=== PATIENT | male | born 1965 | race Caucasian/White ===

== ENCOUNTER 2022-01-07 07:36 | Outpatient (CLI) | payer OTHER, SELFPAY ==
[2022-01-07 10:20] LABS: Albumin* 4.7 g/dL (3.3-5.0); Chloride* 103 mmol/L (96-114); Sodium* 140 mmol/L (135-149)
[2022-01-07 10:22] LABS: Bilirubin Total* 0.8 mg/dL (0.1-1.5); Carbon Dioxide* 28 mmol/L (20-32); Cholesterol* 110 mg/dL (90-199); Creatinine* 1.2 mg/dL (0.5-1.5); Estimated Glomerular Filt Rate 71 ml/min
[2022-01-07 10:23] LABS: Alanine Aminotransferase* 29 U/L (4-50); Alkaline Phosphatase* 90 U/L (40-150); Aspartate Amino Transferase* 25 U/L (12-35); Blood Urea Nitrogen* 28 mg/dL (7-30); Glucose* 120 mg/dL (60-115); Total Protein* 6.7 g/dL (6.0-8.3); Triglycerides* 103 mg/dL (40-149)
[2022-01-07 10:24] LABS: Calcium* 9.3 mg/dL (8.4-10.6); HDL Cholesterol* 35 mg/dL (>=40); LDL Cholesterol Calculated 54 mg/dL (<100)
== END 2022-01-07 07:37 | disposition home or self-care (01) ==
PROVIDERS: PCP Family Medicine; Visit Provider Family Medicine
DX: E11.9 Type 2 diabetes mellitus without complications (principal); I10 Essential (primary) hypertension
CPT/HCPCS: 80053; 80061

== ENCOUNTER 2022-07-04 07:45 | Outpatient (CLI) | payer OTHER, SELFPAY | END 2022-07-04 07:46 | disposition home or self-care (01) | LOC: NFLDREF 07-11 09:27 | PROVIDERS: PCP Family Medicine; Referring Provider Family Medicine; Visit Provider Family Medicine | DX: E78.5 Hyperlipidemia, unspecified (principal); E11.9 Type 2 diabetes mellitus without complications; I10 Essential (primary) hypertension | CPT/HCPCS: 80048; 80061 ==

== ENCOUNTER 2023-04-29 07:33 | Outpatient (CLI) | payer OTHER, SELFPAY | END 2023-04-29 07:34 | disposition home or self-care (01) | LOC: NFLDREF 04-30 11:37 | PROVIDERS: PCP Family Medicine; Referring Provider Family Medicine; Visit Provider Family Medicine | DX: E11.9 Type 2 diabetes mellitus without complications (principal); E78.5 Hyperlipidemia, unspecified; I10 Essential (primary) hypertension; N18.31 Chronic kidney disease, stage 3a | CPT/HCPCS: 80053; 80061 ==

== ENCOUNTER 2023-10-30 07:30 | Outpatient (CLI) | payer OTHER, SELFPAY ==
--- OUTSIDE RECORDS SUMMARY | 2023-11-01 02:48 | XMS_ITS | Clinical Summary ---
Author Organization [place] Address [address] [place] [address] Care Team Providers Care Escalator Service Mechanic Name Role Phone Lizzie Abdi Ra, APRN, CNP Primary Care Provid er Michaela Alexis PA-C Unavailable [phone] Allergies Active Allergy Reactions Criticality Noted Date Comments Lisinopril Cough 07/20/2020 Medications Medication Sig Dispensed Refills Start Date End Date Status amLODIPine (NORVASC) 5 MG tabletIndications:Esse ntial hypertension Take 1 tablet (5 mg) by mouth daily 90 tablet 1 02/14/2021 Active allopurinol (ZYLOPRIM) 300 MG tabletIndications:Ui Designer mar gout involving toe of left foot without tophus, unspecified cause Take 1 tablet (300 mg) by mouth daily 90 tablet 1 05/17/2021 Active amLODIPine (NORVASC) 10 MG tabletIndications:Esse ntial hypertension Take 1 tablet (10 mg) by mouth daily 90 tablet 1 05/17/2021 Active hydrochlorothiazide (HYDRODIURIL) 25 MG tabletIndications:Esse ntial hypertension Take 1 tablet (25 mg) by mouth daily 90 tablet 1 05/17/2021 Active valsartan (DIOVAN) 320 MG tabletIndications:Esse ntial hypertension Take 1 tablet (320 mg) by mouth daily 90 tablet 1 05/17/2021 Active Active Problems Patient Care Coordination No te Formatting of this note migh t be different from the original. [email or web address] Problem Noted Date Diagnosed Date Chronic kidney disease, stage 3 07/20/2020 Diabetes mellitus, type 2 07/20/2020 HTN (hypertension) 02/15/2018 Pain in joint of right shoulder 11/24/2014 Overview: Diagnosis updated by automated process. Provider to review and confirm. Gout 10/21/2013 Overview: Problem list name updated by automated process. Provider to review Hyperlipidemia LDL goal <160 10/10/2013 Immunizations Name Administration Dates Next Due COVID-19 Vaccine (Yeyo) 09/21/2020 TDAP Vaccine (Boostrix) 04/23/2018 Family History Medical History Relation Comments Diabetes Brother Cerebrovascular Disease Father Cerebrovascular Disease Mother TIA's Diabetes Mother Relation Status Comments Brother Alive Father (Age 79) Mother Alive Social History Tobacco Use Types Packs/Day Years Used Date Smoking Tobacco: Never Smokeless Tobacco: Never Tobacco Cessation:Counseling Given: No Alcohol Use Standard Drinks/Week Comments Yes 0 (1 standard drink = 0.6 oz pur e alcohol) 2-3 drinks per week. PHQ-2 Answer Date Recorded PHQ-2 Score 0 05/17/2021 Adolescent Education Answer Date Record ed Getting School Help Needed Not on file 02/17 Sex and Gender Information Value Date Recorded Sex Assigned at Male 09/19/2020 4:35 PM CDT Gender Identity Male 09/19/2020 4:35 PM CDT Sexual Orientation Straight 09/19/2020 4: 35 PM CDT Last Filed Vital Signs Vital Sign Reading Time Taken Comments Blood Pressure 138/90 05/17/2021 9:02 AM DENTAL PATIENT COORDINATOR Pulse 94 05/17/2021 8:53 AM DENTAL PATIENT COORDINATOR Temperature 36.9 ??C (98.4 ??F) 05/17/2021 8:53 AM CS T Respiratory Rate 16 05/17/2021 8:53 AM DENTAL PATIENT COORDINATOR Oxygen Saturation 97% 05/17/2021 8:53 AM DENTAL PATIENT COORDINATOR Inhaled Oxygen Concentration - - Weight 95.6 kg (210 lb 11.2 oz) 05/17/2021 8:53 AM DENTAL PATIENT COORDINATOR Height 174 cm (5' 8.5) 05/17/2021 8:53 AM DENTAL PATIENT COORDINATOR Body Mass Index 31.57 05/17/2021 8:53 AM DENTAL PATIENT COORDINATOR Plan of Treatment Health Maintenance Due Date Last Done Comments ADVANCE CARE PLANNING 1965 ANNUAL REVIEW OF HM ORDERS 1966 CT COLONOGRAPHY 1966 DIABETIC FOOT EXAM 1966 EYE EXAM 1965 FIT 1965 FLEX SIG 1966 sDNA (Cologuard) 1966 HIV SCREENING 1981 HEPATITIS C SCREENING 1984 HEPATITIS B IMMUNIZATION (1 of 3 - 19+ 3-dose series) 1985 HEMOGLOBIN 10/10/2014 10/10/2013, 03/04, 03/17/2010, Additional history exists ZOSTER IMMUNIZATION (1 of 2) 2016 YEARLY PREVENTIVE VISIT 04/25/2021 04/25/2020, 02/03 A1C 08/15/2021 05/17/2021, 08/02, 07/20/2020, Additional history exists LIPID 08/17/2021 08/17/2020, 07/02, 02/03/2019, Additional history exists BMP 05/17/2022 05/17/2021, 08/02, 07/16/2020, Additional history exists MICROALBUMIN 05/17/2022 05/17/2021, 02/09/2018 Pneumococcal Vaccine: Pediatrics (0 to 5 Years) and At-Risk Patients (6 to 64 Years) (2 of 2 - PCV) 10/11/2022 10/11/2021 COVID-19 Vaccine (3 - season) 2023 04/03/2021, 09/21/2020 PHQ-2 (once per calendar year) 2023 05/17/2021, 07/20/2020, 04/25/2020, Additional history exists INFLUENZA VACCINE (Season Ended) 2024 05/17/2021 (Declined) DTAP/TDAP/TD IMMUNIZATION (2 - Td or Tdap) 04/23/2028 04/23/2018 COLONOSCOPY 03/01/2029 03/01/2019, 03/01/2019 COLORECTAL CANCER SCREENING 03/01/2029 URINALYSIS Completed 04/04/2019, 06/0 01/2014, 02/08/2010, Additional history exists HPV IMMUNIZATION Aged Out No longer e ligible based on patient's age to complete this topic IPV IMMUNIZATION Aged Out No longer e ligible based on patient's age to complete this topic MENINGITIS IMMUNIZATION Aged Out No l onger eligible based on patient's age to complete this topic RSV MONOCLONAL ANTIBODY Aged Out No l onger eligible based on patient's age to complete this topic Procedures Procedure Name Priority Date/Time Associated Diagnosis Comments ALBUMIN RANDOM URINE QUANTITATIVE Routine 05/17/2021 9:29 AM DENTAL PATIENT COORDINATOR Essential hypertension BASIC METABOLIC PANEL Routine 05/17/2021 9:26 AM DENTAL PATIENT COORDINATOR Essential hypertension Type 2 diabetes mellitus without complication, without long-term current use of insulin (H) Stage 3a chronic kidney disease (H) HEMOGLOBIN A1C Routine 05/17/2021 9:26 AM DENTAL PATIENT COORDINATOR Type 2 diabetes mellitus without complication, without long-term current use of insulin (H) LIPID REFLEX TO DIRECT LDL PANEL Routine 08/17/2020 7:46 AM CDT Hyperlipidemia LDL goal <160 URINE MACROSCOPIC ONLY Routine 04/04/2019 1:17 PM DENTAL PATIENT COORDINATOR Elevated prostate specific antigen (PSA) COLONOSCOPY Routine 03/01/2019 11:56 AM CDT CBC WITH PLATELETS & DIFFERENTIAL Routine 10/10/2013 8:57 AM CDT Other follow-up examination from Last 3 Months or Most Recently Relevant to Health Maintenance Results * Albumin Random Urine Quantitative with Creat Ratio (05/17/2021 9:29 AM DENTAL PATIENT COORDINATOR) Creatinine Urine mg/dL 72 mg/dL 05/18/2021 10:26 AM DENTAL PATIENT COORDINATOR [facility] Albumin Urine mg/L <5 mg/L 05/18/2021 10:26 AM DENTAL PATIENT COORDINATOR [facility] Albumin Urine mg/g Cr 05/18/2021 10:26 AM DENTAL PATIENT COORDINATOR [facility] Comment:Unable to calculate: ??Urine creatinine or albumin value below detectable level Urine URINE SPECIMEN / Unknown Non-blood Collection / Unknown 05/17/2021 9:29 AM DENTAL PATIENT COORDINATOR 05/17/2021 9:29 AM DENTAL PATIENT COORDINATOR Michaela Alexis PA-C LAB - URINE ORDERAB LES [facility]X LABORATORY [facility] Lab [address] Lab (no room number, 1st floor of clinic) [place] [address], [facility] [phone] * (ABNORMAL) Hemoglobin A1c (05/17/2021 9:26 AM DENTAL PATIENT COORDINATOR) Hemoglobin A1C 8.2(H) 0.0 - 5.6 % 05/17/2021 9:35 AM DENTAL PATIENT COORDINATOR RM [facility] Comment: Normal <5.7% Prediabetes 5.7-6.4% ?? Diabetes 6.5% or higher Note: Adopted from ADA consensus guidelines. Blood STRUCTURE OF RIGHT UPPER LIMB / Unknown Venipuncture / Unknown 05/17/2021 9:26 AM DENTAL PATIENT COORDINATOR 05/17/2021 9:26 AM DENTAL PATIENT COORDINATOR Narrative LABORATORY - 05/17/2021 9:35 AM DENTAL PATIENT COORDINATOR Result verified by repeat analysis Michaela Alexis PA-C LAB - BLOOD ORDERAB LES RM LABORATORY [facility] [id number] [place] [address] Lab (no room number, 1st floor of clinic) [place] [address], [facility] [phone] * (ABNORMAL) Basic metabolic panel (Ca, Cl, CO2, Creat, Gluc, K, Na, BUN) (05/17/2021 9:26 AM DENTAL PATIENT COORDINATOR) Sodium 139 133 - 144 mmol/L 05/18/2021 4:38 PM DENTAL PATIENT COORDINATOR [facility] Potassium 3.7 3.4 - 5.3 mmol/L 05/18/2021 4:38 PM DENTAL PATIENT COORDINATOR [facility] Chloride 103 94 - 109 mmol/L 05/18/2021 4:38 PM DENTAL PATIENT COORDINATOR [facility] Carbon Dioxide (CO2) 28 20 - 32 mmol/L 05/18/2021 4:38 PM DENTAL PATIENT COORDINATOR [facility] Anion Gap 8 3 - 14 mmol/L 05/18/2021 4:38 PM DENTAL PATIENT COORDINATOR [facility] Urea Nitrogen 21 7 - 30 mg/dL 05/18/2021 4:38 PM DENTAL PATIENT COORDINATOR [facility] Creatinine 1.22 0.66 - 1.25 mg/dL 05/18/2021 4:38 PM DENTAL PATIENT COORDINATOR [facility] Calcium 9.5 8.5 - 10.1 mg/dL 05/18/2021 4:38 PM DENTAL PATIENT COORDINATOR [facility] Glucose 268(H) 70 - 99 mg/dL 05/18/2021 4:38 PM DENTAL PATIENT COORDINATOR [facility] GFR Estimate 70 >60 mL/min/1.7 3m2 05/18/2021 4:38 PM DENTAL PATIENT COORDINATOR [facility] Comment:Effective April 042020 eGFRcr in adults is calculated using the 2020 CKD-EPI creatinine equation which includes age and gender (Екатерина et al., NEJM, DOI: 10.1056/TQBVvk6807771) Blood STRUCTURE OF RIGHT UPPER LIMB / Unknown Venipuncture / Unknown 05/17/2021 9:26 AM DENTAL PATIENT COORDINATOR 05/17/2021 9:26 AM DENTAL PATIENT COORDINATOR Michaela Alexis PA-C LAB - BLOOD ORDERAB LES OX LABORATORY [facility] [address] Lab (no room number, 1st floor of clinic) [place] [address], [facility] [phone] * (ABNORMAL) Lipid panel reflex to direct LDL Fasting (08/17/2020 7:46 AM CDT) Cholesterol 186 <200 mg/dL 08/17/2020 2:53 PM T [facility] Triglycerides 201(H) <150 mg/dL 08/17/2020 2:53 PM T [facility] Comment: Borderline high: ??150-199 mg/dl High: ? 200-499 mg/dl Very high: ? >499 mg/dl Fasting specimen HDL Cholesterol 31(L) >39 mg/dL 2:53 PM [facility] LDL Cholesterol Calculated 115(H) <100 mg/dL 08/17/2020 2:53 PM [facility] Comment: Above desirable: ??100-129 mg/dl Borderline High: ??130-159 mg/dL High: ? 160-189 mg/dL Very high: ? >189 mg/dl Non HDL Cholesterol 155(H) <130 mg/dL 08/17/2020 2:53 PM CDT [facility] Comment: Above Desirable: ??130-159 mg/dl Borderline high: ??160-189 mg/dl High: ? 190-219 mg/dl Very high: ? >219 mg/dl Blood specimen (specimen) 08/17/2020 7:46 AM CDT 08/17/2020 7:47 AM CDT Lizzie Abdi APRN ENTRY LEVEL MANAGEMENT LAB - BLOOD ORDERABLES Performing Organization Address City/State/[facility] Co de Phone Number [facility] [address] [place] [id number] [phone] * UA without Microscopic [[id number]] (04/04/2019 1:17 PM DENTAL PATIENT COORDINATOR) Color Urine Yellow 04/04/2019 1:22 PM [facility] Appearance Urine Clear 04/04/20 19 1:22 PM [facility] Glucose Urine Negative NEG^Negat jj mg/dL 04/04/2019 1:22 PM [facility] Bilirubin Urine Negative NEG^Negat jj 04/04/2019 1:22 PM [facility] Ketones Urine Negative NEG^Negat jj mg/dL 04/04/2019 1:22 PM [facility] Specific [place] Urine 1.010 1.003 - 1.035 04/04/2019 1:22 PM [facility] Blood Urine Negative NEG^Negat jj 04/04/2019 1:22 PM [facility] pH Urine 7.0 5.0 - 7.0 pH 04/04/2019 1:22 PM [facility] Protein Albumin Urine Negative NEG^Negat jj mg/dL 04/04/2019 1:22 PM [facility] Urobilinogen Urine 0.2 0.2 - 1.0 EU/dL 04/04/2019 1:22 PM [facility] Nitrite Urine Negative NEG^Negat jj 04/04/2019 1:22 PM [facility] Leukocyte Esterase Urine Negative NEG^Negat jj 04/04/2019 1:22 PM [facility] Source Midstream Urine 04/04/2019 1:18 PM [facility] Examination of midstream urine specimen (procedure) 04/04/2019 1:17 PM DENTAL PATIENT COORDINATOR 04/04/2019 1:18 PM [facility] Yazan Sharif MD LAB - URINE ORD ERABLES [facility] [address] [facility] [address] [place] [address], [facility] [phone] * COLONOSCOPY (03/01/2019 11:56 AM CDT) COLONOSCOPY [facility] Patient Name: De Gan ? Procedure Date: 03/01/2019 11:56 AM ? Date of : 1965 ?Admit Type: Outpatient Age: 53 ? Gender: Male Attending MD: Arnulfo Arias MD ?? Total Sedation Time: Instrument Name: 219 - Pediatric Colonoscope Procedure: ?Colonoscopy Indications: ?Screening for colorectal malignant neoplasm Providers: ?Arnulfo Arias MD (Doctor) Referring MD: ? Lizzie Abdi NP (Referring MD) Medicines: ?Midazolam 2 mg IV, Fentanyl 100 micrograms IV Complications: ?No immediate complications. Procedure: ?Pre-Anesthesia Assessment: ?- Prior to the procedure, a History and Physical ?was performed, and patient medications and ?allergies were reviewed. The patient is competent. ?The risks and benefits of the procedure and the ?sedation options and risks were discussed with the ?patient. All questions were answered and informed ?consent was obtained. Patient identification and ?proposed procedure were verified by the physician ?in the procedure room. Mental Status Examination: ?alert and oriented. Airway Examination: normal ?oropharyngeal airway and neck mobility. Respiratory ?Examination: clear to auscultation. CV Examination: ?normal. Prophylactic Antibiotics: The patient does ?not require prophylactic antibiotics. Prior ?Anticoagulants: The patient has taken no previous ?anticoagulant or antiplatelet agents. ASA Grade ?Assessment: I - A normal, healthy patient. After ?reviewing the risks and benefits, the patient was ?deemed in satisfactory condition to undergo the ?procedure. The anesthesia plan was to use moderate ?sedation / analgesia (conscious sedation). ?Immediately prior to administration of medications, ?the patient was re-assessed for adequacy to receive ?sedatives. The heart rate, respiratory rate, oxygen ?saturations, blood pressure, adequacy of pulmonary ?ventilation, and response to care were monitored ?throughout the procedure. The physical status of ?the patient was re-assessed after the procedure. ?After obtaining informed consent, the colonoscope ?was passed under direct vision. Throughout the ?procedure, the patient's blood pressure, pulse, and ?oxygen saturations were monitored continuously. The ?Olympus, Pediatric Colonoscope, Model # [id number]-H190DL, ?[place] # 219, SN # [id number] was introduced through ?the anus and advanced to the cecum, identified by ?appendiceal orifice and ileocecal valve. The ?colonoscopy was performed without difficulty. The ?patient tolerated the procedure well. The quality ?of the bowel preparation was good. ? Findings: ? The perianal and digital rectal examinations were normal. ? A few medium-mouthed diverticula were found in the ascending colon. ? The exam was otherwise without abnormality on direct and retroflexion ? views. ? Impression: ? - Diverticulosis in the ascending colon. ?- The examination was otherwise normal on direct ?and retroflexion views. ?- No specimens collected. Recommendation: ? - Repeat colonoscopy in 10 years for screening ?purposes. ? Procedure Code(s): ? --- Professional --- ? G0121, Colorectal cancer screening; colonoscopy on individual not ? meeting criteria for high risk Diagnosis Code(s): ? --- Professional --- ? Z12.11, Encounter for screening for malignant neoplasm of colon CPT copyright 2018 [employer]. All rights reserved. The codes documented in this report are preliminary and upon fruit shipper review may be revised to meet current compliance requirements. Electronically signed by Arnulfo Arias MD __ Arnulfo Arias MD 03/01/2019 12:46:23 PM I was physically present for the entire viewing portion of the exam. Arnulfo Arias MD Number of Addenda: 0 Note Initiated On: 03/01/2019 11:56 AM MRN: ?[id number] Procedure Date: ? 03/01/2019 11:56:21 AM Scope Withdrawal Time: 0 hours 6 minutes 2 seconds Total Procedure Duration: 0 hours 13 minutes 48 seconds Estimated Blood Loss: ? Scope In: 12:27:17 PM Scope Out: 12:41:05 PM RADIOLOGY RESULTS 03/01/2019 11:5 6 AM CDT Lizzie Abdi ADVANCED ANALYTICS ASSOCIATE ENTRY LEVEL MANAGEMENT PROCEDURES RADIOLOGY RESULTS * CBC with platelets and differential (10/10/2013 8:57 AM CDT) WBC 5.1 4.0 - 11.0 10e9/L [facility] RBC Count 5.20 4.4 - 5.9 10e12/L [facility] Hemoglobin 15.7 13.3 - 17.7 g/dL [facility] Hematocrit 44.7 40.0 - 53.0 % [facility] MCV 86 78 - 100 fl [facility] MCH 30.2 26.5 - 33.0 pg [facility] MCHC 35.1 31.5 - 36.5 g/dL [facility] RDW 12.3 10.0 - 15.0 % [facility] Platelet Count 163 150 - 450 10e9/L [facility] Diff Method Automated Method [facility] % Neutrophils 58.4 % [facility] % Lymphocytes 32.4 % [facility] % Monocytes 5.7 % [facility] % Eosinophils 3.3 % [facility] % Basophils 0.2 % [facility] Absolute Neutrophil 3.0 1.6 - 8.3 10e9/L [facility] Absolute Lymphocytes 1.7 0.8 - 5.3 10e9/L [facility] Absolute Monocytes 0.3 0.0 - 1.3 10e9/L [facility] Absolute Eosinophils 0.2 0.0 - 0.7 10e9/L [facility] Absolute Basophils 0.0 0.0 - 0.2 10e9/L [facility] Blood specimen (specimen) 10/10/2013 8:57 AM CDT 10/10/2013 8:58 AM CDT Lizzie Abdi APRN ENTRY LEVEL MANAGEMENT LAB - BLOOD [facility]ABLES [facility] [address] [place] [address] from Last 3 Months or Most Recently Relevant to Health Maintenance Care Teams Escalator Service Mechanic Relationship Specialty Start Date End Date Lizzie Abdi Ra, ADVANCED ANALYTICS ASSOCIATE ENTRY LEVEL MANAGEMENT [address] [place] [id number] PCP - General Family Practice 10/04/13 Michaela Alexis, PASonalC [address] [place], [place] [id number] Assigned PCP 08/25/23
--- OUTSIDE RECORDS SUMMARY | 2023-11-01 02:49 | XMS_ITS | Encounter Summary ---
Author Organization [place] Address [address] [place] [address]. [place] [address] Care Team Providers Care Extrusion Machine Operator Name Role Phone Lizzie Abdi Ra, APRN RESEARCH CHEMICAL ENGINEER Primary Care Provid er Lizzie Abdi Ra, APRN RESEARCH CHEMICAL ENGINEER Unavailable + [phone] Michaela Alexis PA-C Unavailable [phone] Yazan Sharif MD Unavailable [phone] Lizzie Abdi Ra, APRN RESEARCH CHEMICAL ENGINEER Unavailable + [phone] Michaela Alexis PA-C Unavailable [phone] Lizzie Abdi Ra, APRN RESEARCH CHEMICAL ENGINEER Unavailable + [phone] Michaela Alexis E PA-C Unavailable [phone] Reason for Visit * Reason Onset Date Comments Refill Request 08/09/2019 Encounter Details Date Type Department Care Team (Late st Contact Info) Description 08/09/2019 MyC Refill [facility] [address] [place] [address] Lizzie Abdi Ra, APRN RESEARCH CHEMICAL ENGINEER [address] [place] [address] Refill Request Social History Tobacco Use Types Packs/Day Years Used Date Smoking Tobacco: Never Smokeless Tobacco: Never Alcohol Use Standard Drinks/Week Comments Yes 0 (1 standard drink = 0.6 oz pur e alcohol) 2-3 drinks per week. 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, unspecified cause documented in this encounter Care Teams Extrusion Machine Operator Relationship Specialty Start Date End Date Lizzie Abdi Ra, PIA RESEARCH CHEMICAL ENGINEER [address] [place] [address] PCP - General Family Practice 10/04/13 Lizzie Abdi Ra, APRN RESEARCH CHEMICAL ENGINEER [address] [place] [address] Assigned PCP 02/28/18 02/25/20 Michaela Alexis PA-C [address] [place] [address] Assigned PCP 02/26/20 05/05/20 Yazan Sharif MD [address] [address] Assigned Surgical Provider 02/24/2010/06/20 Lizzie Abdi Ra ANIMAL CARE TECHNICIAN RESEARCH CHEMICAL ENGINEER [address] [address] Assigned PCP 05/06/20 01/24/22 Michaela Alexis PA-C [address] [place] [address] Assigned PCP 01/25/22 11/14/22 Lizzie Abdi Ra, APRN RESEARCH CHEMICAL ENGINEER [address] [place] [address] Assigned PCP 11/15/22 08/24/23 Michaela Alexis PA-C [address] [place] [address] Assigned PCP 08/25/23 documented as of this encounter
--- OUTSIDE RECORDS SUMMARY | 2023-11-01 02:49 | XMS_ITS | Referral Summary ---
Author Organization [facility] Address [address] [place] [address] Care Team Providers Care Graphic Specialist Name Role Phone Lizzie Abdi Ra, APRN, CNP Primary Care Provid er Michaela Alexis PA-C Unavailable [phone] Allergies Active Allergy Reactions Criticality Noted Date Comments Lisinopril Cough 07/20/2020 Medications Medication Sig Dispensed Refills Start Date End Date Status amLODIPine (NORVASC) 5 MG tabletIndications:Esse ntial hypertension Take 1 tablet (5 mg) by mouth daily 90 tablet 1 02/14/2021 Active allopurinol (ZYLOPRIM) 300 MG tabletIndications:Telephone Sterilizer mar gout involving toe of left foot [...] migh t be different from the original. [email or web address] Problem Noted Date Diagnosed Date Chronic kidney [...] Vaccine (Yeyo) 09/21/2020 TDAP Vaccine (Boostrix) 04/23/2018 Social History Tobacco Use Types Packs/Day Years [...] Comments Blood Pressure 138/90 05/17/2021 9:02 AM CAN CR[facility]PER Pulse 94 05/17/2021 8:53 AM CAN CRIMPER Temperature 36.9 ??C (98.4 ??F) 05/17/2021 8:53 AM CS T Respiratory Rate 16 05/17/2021 8:53 AM [facility] CR[facility]PER Oxygen Saturation 97% 05/17/2021 8:53 AM [facility] CR[facility] Inhaled Oxygen Concentration - - Weight 95.6 kg (210 lb 11.2 oz) 05/17/2021 8:53 AM [facility] CR[facility]PER Height 174 cm (5' 8.5) 05/17/2021 8:53 AM [facility] CR[facility] Body Mass Index 31.57 05/17/2021 8:53 AM [facility] CR[facility]PER Plan of Treatment Not on file Procedures Procedure Name Priority Date/Time Associated Diagnosis Comments ALBUMIN RANDOM URINE QUANTITATIVE Routine 05/17/2021 9:29 AM [facility] CR[facility]PER Essential hypertension BASIC METABOLIC PANEL Routine 05/17/2021 9:26 AM [facility] CR[facility]PER Essential hypertension Type 2 diabetes mellitus without complication, without long-term current use of insulin (H) Stage 3a chronic kidney disease (H) HEMOGLOBIN A1C Routine 05/17/2021 9:26 AM [facility] CR[facility]PER Type 2 diabetes mellitus without complication, without long-term current use of insulin (H) LIPID REFLEX TO DIRECT LDL PANEL Routine 08/17/2020 7:46 AM CDT Hyperlipidemia LDL goal <160 URINE MACROSCOPIC ONLY Routine 04/04/2019 1:17 PM [facility] Elevated prostate specific antigen (PSA) COLONOSCOPY Routine 03/01/2019 11:56 AM CDT CBC WITH PLATELETS & DIFFERENTIAL Routine 10/10/2013 8:57 AM CDT Other follow-up examination from Last 3 Months or Most Recently Relevant to Health Maintenance Results * Albumin Random Urine Quantitative with Creat Ratio (05/17/2021 9:29 AM [facility] CR[facility]) Creatinine Urine mg/dL 72 mg/dL 05/18/2021 10:26 AM [facility] Albumin Urine mg/L <5 mg/L 05/18/2021 10:26 AM [facility] Albumin Urine mg/g Cr 05/18/2021 10:26 AM [facility] Comment:Unable to calculate: ??Urine creatinine or albumin value below detectable level Urine URINE SPECIMEN / Unknown Non-blood Collection / Unknown 05/17/2021 9:29 AM [facility] CR[facility] 05/17/2021 9:29 AM [facility] CR[facility] Michaela Alexis PA-C LAB - URINE ORDERAB LES [facility] LAB[facility]AT[facility] [address] Lab (no room number, 1st floor of clinic) [place] [address], [facility] [phone] * (ABNORMAL) Hemoglobin A1c (05/17/2021 9:26 AM CAN CR[facility]PER) Hemoglobin A1C 8.2(H) 0.0 - 5.6 % 05/17/2021 9:35 AM [facility] CR[facility] Comment: Normal <5.7% Prediabetes 5.7-6.4% ?? Diabetes 6.5% or higher Note: Adopted from ADA consensus guidelines. Blood STRUCTURE OF RIGHT UPPER LIMB / Unknown Venipuncture / Unknown 05/17/2021 9:26 AM [facility] CR[facility]PER 05/17/2021 9:26 AM [facility] Narrative LABORATORY - 05/17/2021 9:35 AM [facility] CR[facility] Result verified by repeat analysis Michaela Alexis PA-C LAB - BLOOD ORDERAB LES LABORATORY [facility] [address] [facility] Lab (no room number, 1st floor of clinic) [place] [address], [facility] [phone] * (ABNORMAL) Basic metabolic panel (Ca, Cl, CO2, Creat, Gluc, K, Na, BUN) (05/17/2021 9:26 AM CAN CRIMPER) Sodium 139 133 - 144 mmol/L 05/18/2021 4:38 PM [facility] Potassium 3.7 3.4 - 5.3 mmol/L 05/18/2021 4:38 PM [facility] Chloride 103 94 - 109 mmol/L 05/18/2021 4:38 PM [facility] Carbon Dioxide (CO2) 28 20 - 32 mmol/L 05/18/2021 4:38 PM [facility] Anion Gap 8 3 - 14 mmol/L 05/18/2021 4:38 PM [facility] Urea Nitrogen 21 7 - 30 mg/dL 05/18/2021 4:38 PM [facility] Creatinine 1.22 0.66 - 1.25 mg/dL 05/18/2021 4:38 PM [facility] Calcium 9.5 8.5 - 10.1 mg/dL 05/18/2021 4:38 PM [facility] Glucose 268(H) 70 - 99 mg/dL 05/18/2021 4:38 PM [facility] GFR Estimate 70 >60 mL/min/1.7 3m2 05/18/2021 4:38 PM [facility] Comment:Effective April 042020 eGFRcr in adults is calculated using the 2020 CKD-EPI creatinine equation which includes age and gender (Екатерина et al., NEJM, DOI: 10.1056/ROIYxr0770290) Blood STRUCTURE OF RIGHT UPPER LIMB / Unknown Venipuncture / Unknown 05/17/2021 9:26 AM CAN CRIMPER 05/17/2021 9:26 AM [facility] CR[facility]PER Michaela Alexis PA-C LAB - BLOOD ORDERAB LES [facility]X LABORATORY [facility] [address] Lab (no room number, 1st floor of clinic) [place] [address], [facility] [phone] * (ABNORMAL) Lipid panel reflex to direct LDL Fasting (08/17/2020 7:46 AM CDT) Cholesterol 186 <200 mg/dL 08/17/2020 2:53 PM [facility] Triglycerides 201(H) <150 mg/dL 08/17/2020 2:53 PM [facility] Comment: Borderline high: ??150-199 mg/dl High: ? 200-499 mg/dl Very high: ? >499 mg/dl Fasting specimen HDL Cholesterol 31(L) >39 mg/dL 2:53 PM T [facility] LDL Cholesterol Calculated 115(H) <100 mg/dL 08/17/2020 2:53 PM [facility] Comment: Above desirable: ??100-129 mg/dl Borderline High: ??130-159 mg/dL High: ? 160-189 mg/dL Very high: ? >189 mg/dl Non HDL Cholesterol 155(H) <130 mg/dL 08/17/2020 2:53 PM T [facility] Comment: Above Desirable: ??130-159 mg/dl Borderline high: ??160-189 mg/dl High: ? 190-219 mg/dl Very high: ? >219 mg/dl Blood specimen (specimen) 08/17/2020 7:46 AM CDT 08/17/2020 7:47 AM CDT Lizzie Abdi APRN BUSINESS SYSTEMS CONSULTANT LAB - BLOOD ORDERABLES Performing Organization Address City/State/[facility] Co de Phone Number [facility] [address] [place] [address], [facility] [phone] * UA without Microscopic [[id number]] (04/04/2019 1:17 PM [facility]) Color Urine Yellow 04/04/2019 1:22 PM [facility] Appearance Urine Clear 04/04/20 1:22 PM [facility] Glucose Urine Negative NEG^Negat jj mg/dL 04/04/2019 1:22 PM [facility] Bilirubin Urine Negative NEG^Negat jj 04/04/2019 1:22 PM [facility] Ketones Urine Negative NEG^Negat jj mg/dL 04/04/2019 1:22 PM [facility] Specific Warren Urine 1.010 1.003 - 1.035 04/04/2019 1:22 PM [facility] Blood Urine Negative NEG^Negat jj 04/04/2019 1:22 PM [facility] pH Urine 7.0 5.0 - 7.0 pH 04/04/2019 1:22 PM [facility] Protein Albumin Urine Negative NEG^Negat jj mg/dL 04/04/2019 1:22 PM [facility] Urobilinogen Urine 0.2 0.2 - 1.0 EU/dL 04/04/2019 1:22 PM [facility] Nitrite Urine Negative NEG^Negat jj 04/04/2019 1:22 PM [facility] Leukocyte Esterase Urine Negative NEG^Negat jj 04/04/2019 1:22 PM [facility] Source Midstream Urine 04/04/2019 1:18 PM [facility] Examination of midstream urine specimen (procedure) 04/04/2019 1:17 PM [facility] 04/04/2019 1:18 PM [facility] Yazan Sharif MD LAB - URINE ORD ERABLES [facility] [address] [facility] [address] [place] [address], [facility] [phone] * COLONOSCOPY (03/01/2019 11:56 AM CDT) COLONOSCOPY [facility] Patient Name: Ed KarlosBlossom Gan ? Procedure Date: 03/01/2019 11:56 AM [...] # [id number], ?[place] # 219, SN # [id number] was introduced through ?the anus and advanced [...] malignant neoplasm of colon CPT copyright 2018 [employer]. All rights reserved. The codes documented in this report are preliminary and upon yarn spooler review may be revised to meet current compliance requirements. Electronically signed by Arnulfo Arias MD __ Arnulfo Arias MD 03/01/2019 12:46:23 PM I was physically present for the entire viewing portion of the exam. Arnulfo Arias MD Number of Addenda: 0 Note Initiated On: 03/01/2019 11:56 AM MRN: ?[id number] Procedure Date: ? 03/01/2019 11:56:21 AM Scope Withdrawal Time: 0 hours 6 minutes 2 seconds Total Procedure Duration: 0 hours 13 minutes 48 seconds Estimated Blood Loss: ? Scope In: 12:27:17 PM Scope Out: 12:41:05 PM RADIOLOGY RESULTS 03/01/2019 11:5 6 AM CDT Lizzie Abdi FOXING PAINTER BUSINESS SYSTEMS CONSULTANT PROCEDURES RADIOLOGY RESULTS * CBC with platelets and differential (10/10/2013 8:57 AM CDT) WBC 5.1 4.0 - 11.0 10e9/L [facility] RBC Count 5.20 4.4 - 5.9 10e12/L [facility] Hemoglobin 15.7 13.3 - 17.7 g/dL [facility] Hematocrit 44.7 40.0 - 53.0 % [facility] MCV 86 78 - 100 fl [facility] MCH 30.2 26.5 - 33.0 pg [facility] MCHC 35.1 31.5 - 36.5 g/dL [facility] RDW 12.3 10.0 - 15.0 % [facility] Platelet Count 163 150 - 450 10e9/L [facility] Diff Method Automated Method [facility] % Neutrophils 58.4 % [facility] Lymphocytes 32.4 % [facility] % Monocytes 5.7 % [facility] % Eosinophils 3.3 % [facility] % Basophils 0.2 % [facility] Absolute Neutrophil 3.0 1.6 - 8.3 10e9/L [facility] Absolute Lymphocytes 1.7 0.8 - 5.3 10e9/L [facility] Absolute Monocytes 0.3 0.0 - 1.3 10e9/L [facility] Absolute Eosinophils 0.2 0.0 - 0.7 10e9/L [facility] Absolute Basophils 0.0 0.0 - 0.2 10e9/L [facility] Blood specimen (specimen) 10/10/2013 8:57 AM CDT 10/10/2013 8:58 AM CDT Lizzie Abdi APRN BUSINESS SYSTEMS CONSULTANT LAB [facility]LOOD [facility]ABLES [facility] [address] [place] [address] from Last 3 Months or Most Recently Relevant to Health Maintenance Care Teams Graphic Specialist Relationship Specialty Start Date End Date Lizzie Abdi Ra, APRN CNP [address] [place] [address] PCP - General Family Practice 10/04/13 Michaela Alexis PA-C [address] [place] [address] Assigned PCP 08/25/23
--- OUTSIDE RECORDS SUMMARY | 2023-11-01 02:49 | XMS_ITS | Encounter Summary ---
Author Organization [facility] Address [address] [place] [address]. [place] [address] Care Team Providers Care Security System Technician Name Role Phone Lizzie Abdi Ra, APRN, CNP Primary Care Provid er Lizzie Abdi Ra, APRN, CNP Unavailable + [phone] Michaela Alexis-C Unavailable [phone] Lizzie Abdi Ra, APRN HOME SUPERVISOR Unavailable + [phone] Michaela Alexis-C Unavailable [phone] Reason for Visit * Reason Onset Date Comments Refill Request 02/25/2021 allopurinol (ZYL OPRIM) 300 MG tablet Encounter Details Date Type Department Care Team (Late st Contact Info) Description 02/25/[address] [facility] [address] [place] [address] Lizzie Abdi Ra, APRN HOME SUPERVISOR [address] [place] [address] Refill Request (allopurinol (ZYLOPRIM) 300 MG tablet) Social History Tobacco Use Types Packs/Day Years Used Date Smoking Tobacco: Never Smokeless Tobacco: Never Alcohol Use Standard Drinks/Week Comments Yes 0 (1 standard drink = 0.6 oz pur e alcohol) 2-3 drinks per week. PHQ-2 Answer Date Recorded PHQ-2 Score 0 07/20/2020 Sex and Gender Information Value Date Recorded Sex Assigned at Male 09/19/2020 4:35 PM CDT Gender Identity Male 09/19/2020 4:35 PM CDT Sexual Orientation Straight 09/19/2020 4: 35 PM CDT documented as of this encounter Miscellaneous Notes * Telephone Encounter - Steff Oshea RN - 02/25/2021 4:09 PM CDT Routing refill request to provider for review/approval because: Alejandra Sung RN * Telephone Encounter - Brandy Caraballo - 02/25/2021 3:59 PM CDT Patient is calling checking the status of refill, he is going to be out by and is hoping to get a refill [facility]. He is unsure why [facility] didn't request this medication along with the other ones we processed on 02/12/21. Brandy Caraballo [facility] [employer] Tech * Telephone Encounter - Iman Wilson - 02/25/2021 2:05 PM CDT New pharmacy requesting Rx. 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
--- OUTSIDE RECORDS SUMMARY | 2023-11-01 02:49 | XMS_ITS | Encounter Summary ---
Author Organization [facility] Address [address] [place] [address]. [place] [address] Care Team Providers Care Washing Machine Loader Name Role Phone Lizzie Abdi Ra, APRN ACQUISITION COST ESTIMATOR Primary Care Provid er Lizzie Abdi Ra, APRN ACQUISITION COST ESTIMATOR Unavailable + [phone] Michaela Alexis PA-C Unavailable [phone] Yazan Sharif MD Unavailable [phone] Lizzie Abdi Ra, APRN ACQUISITION COST ESTIMATOR Unavailable + [phone] Michaela Alexis PA-C Unavailable [phone] Lizzie Abdi Ra MASTER TAX ADVISOR ACQUISITION COST ESTIMATOR Unavailable + [phone] Michaela Alexis E PA-C Unavailable [phone] Reason for Visit * Reason Comments Medication Refill Encounter Details Date Type Department Care Team (Late st Contact Info) Description 11/05/2018 Refill [facility] [address] [place] [address] Lizzie Abdi Ra, APRN ACQUISITION COST ESTIMATOR [address] [place] [address] Medication Refill Social History Tobacco Use Types Packs/Day Years [...] encounter Miscellaneous Notes * Telephone Encounter - Bushra Villegas, RN - 11/05/2018 2:23 PM CDT Prescription approved per [facility] Refill Protocol. Bushra Palmer RN November 05, 2018 2:23 PM documented in this encounter Plan of Treatment Not on file documented as of this encounter Visit Diagnoses Diagnosis Essential hypertension Unspecified essential hypertension documented in this encounter Care Teams Washing Machine Loader Relationship Specialty Start Date End Date Lizzie Abdi Ra, APRN ACQUISITION COST ESTIMATOR [address] [place] [address] PCP - General Family Practice 10/04/13 Lizzie Abdi Ra, APRN ACQUISITION COST ESTIMATOR [address] [place] [address] Assigned PCP 02/28/18 02/25/20 Michaela Alexis PA-C [address] [address] [address] Assigned PCP 02/26/20 05/05/20 Yazan Sharif MD [address] [address] Assigned Surgical Provider 02/24/2010/06/20 Lizzie Abdi Ra, APRN ACQUISITION COST ESTIMATOR [address] [address] [address] [address] Assigned PCP 05/06/20 01/24/22 Michaela Alexis PA-C [address] [place] [address] Assigned PCP 01/25/22 11/14/22 Lizzie Abdi Ra, APRN ACQUISITION COST ESTIMATOR [address] [place] [address] Assigned PCP 11/15/22 08/24/23 Michaela Alexis PA-C [address] [place] [address] Assigned PCP 08/25/23 documented as of this encounter
--- OUTSIDE RECORDS SUMMARY | 2023-11-01 02:49 | XMS_ITS | Encounter Summary ---
Author Organization [facility] Address [address] [place] [address] Care Team Providers Care Painter Structural Steel Name Role Phone Lizzie Abdi Ra, APRN, CNP Primary Care Provid er Lizzie Abdi Ra, APRN FINANCIAL INVESTMENT ADVISER Unavailable + [phone] Michaela Alexis-C Unavailable [phone] Lizzie Abdi Ra, APRN FINANCIAL INVESTMENT ADVISER Unavailable + [phone] Michaela Alexis-C Unavailable [phone] Encounter Details Date Type Department Care Team (Late st Contact Info) Description 03/26/2021 My[facility] Medical Advice [address] [address] Austen Maldonado MA Social History Tobacco Use Types Packs/Day Years [...] Orientation Straight 09/19/2020 4: 35 PM CDT COVID-19 Exposure Response Date Recorded In the last month, have you been in contact with someone who was confirmed or suspected to have Coronavirus / COVID-19? No / Unsure 03/13/2021 4:21 PM SALES EXPERT HOME THEATER documented as of this encounter Plan of Treatment Not on file documented as of this encounter Visit Diagnoses Not on filedocumented in this encounter Care Teams Painter Structural Steel Relationship Specialty Start Date End Date Lizzie Abdi Ra, APRN FINANCIAL INVESTMENT ADVISER [address] [address] PCP - General Family Practice 10/04/13 Lizzie Abdi Ra, APRN FINANCIAL INVESTMENT ADVISER [address] [place] [address] Assigned PCP 05/06/20 01/24/22 Michaela Alexis PA-C [address] [facility] [place] [address] Assigned PCP 01/25/22 11/14/22 Lizzie Abdi Ra, APRN FINANCIAL INVESTMENT ADVISER [address] [place] [address] Assigned PCP 11/15/22 08/24/23 Michaela Alexis PA-C [address] [facility] [place] [address] Assigned PCP 08/25/23 documented as of this encounter
--- OUTSIDE RECORDS SUMMARY | 2023-11-01 02:49 | XMS_ITS | Encounter Summary ---
Author Organization [facility] Address [address] [place] [address] Care Team Providers Care Retail Planner Name Role Phone Lizzie Abdi Ra, APRN SENIOR BUYER PLANNER Primary Care Provid er Lizzie Abdi Ra, APRN SENIOR BUYER PLANNER Unavailable + [phone] iLzzie Abdi Ra, APRN SENIOR BUYER PLANNER Unavailable + [phone] Michaela Alexis-C Unavailable [phone] Yazan Sharif MD Unavailable [phone] Lizzie Abdi Ra TROUBLE TRACER SENIOR BUYER PLANNER Unavailable + [phone] Michaela Alexis PA-C Unavailable [phone] Lizzie Abdi Ra TROUBLE TRACER SENIOR BUYER PLANNER Unavailable + [phone] Michaela Alexis PA-C Unavailable [phone] Encounter Details Date Type Department Care Team (Late st Contact Info) Description 06/04/2018 [facility] [place] [facility] [address] [address] Adelaida Collado Social History Tobacco Use Types Packs/Day Years [...] on filedocumented in this encounter Care Teams Retail Planner Relationship Specialty Start Date End Date Lizzie Abdi Ra, APRN SENIOR BUYER PLANNER [address] [place] [address] PCP - General Family Practice 10/04/13 Lizzie Abdi Ra TROUBLE TRACER SENIOR BUYER PLANNER [address] [place] [address] PCP - Assigned PCP 02/28/18 07/06/18 Lizzie Abdi Ra, APRN SENIOR BUYER PLANNER [address] [address] [address] [address] Assigned PCP 02/28/18 02/25/20 Michaela Alexis PA-C [address] [place] [address] Assigned PCP 02/26/20 05/05/20 Yazan Sharif MD [address] [address] Assigned Surgical Provider 02/24/2010/06/20 Lizzie Abdi Ra TROUBLE TRACER SENIOR BUYER PLANNER [address] [address] [address] [address] Assigned PCP 05/06/20 01/24/22 Michaela Alexis PA-C [address] [facility] [place] [address] Assigned PCP 01/25/22 11/14/22 Lizzie Abdi Ra, APRN CNP [address] [address] [id number] Assigned PCP 11/15/22 08/24/23 Michaela Alexis PA-C [address] [address] [id number] Assigned PCP 08/25/23 documented as of this encounter
--- OUTSIDE RECORDS SUMMARY | 2023-11-01 02:49 | XMS_ITS | Encounter Summary ---
Author Organization [facility] Address [address] [place] [address] Care Team Providers Care Machinist Tool And Die Name Role Phone Lizzie Abdi Ra, APRN, CNP Primary Care Provid er Lizzie Abdi Ra, APRN MEMBERSHIP SALES MANAGER Unavailable + [phone] Michaela Alexis-C Unavailable [phone] Lizzie Abdi Ra, APRN MEMBERSHIP SALES MANAGER Unavailable + [phone] Michaela Alexis-C Unavailable [phone] Encounter Details Date Type Department Care Team (Late st Contact Info) Description 03/13/2021 MyC Medical Advice [address] [address] [place] Social History Tobacco Use Types Packs/Day Years [...] COVID-19? No / Unsure 03/13/2021 4:21 PM STRUCTURAL STEEL IRONWORKER documented as of this encounter Plan of Treatment Not on file documented as of this encounter Visit Diagnoses Not on filedocumented in this encounter Care Teams Machinist Tool And Die Relationship Specialty Start Date End Date Lizzie Abdi Ra, APRN CNP [address] [place] [address] PCP - General Family Practice 10/04/13 Lizzie Abdi Ra, APRN MEMBERSHIP SALES MANAGER [address] [place] [address] Assigned PCP 05/06/20 01/24/22 Michaela Alexis PA-C [address] [facility] [place] [address] Assigned PCP 01/25/22 11/14/22 Lizzie Abdi Ra, APRN MEMBERSHIP SALES MANAGER [address] [place] [address] Assigned PCP 11/15/22 08/24/23 Michaela Alexis PA-C [address] [place] [address] Assigned PCP 08/25/23 documented as of this encounter
--- OUTSIDE RECORDS SUMMARY | 2023-11-01 02:49 | XMS_ITS | Encounter Summary ---
Author Organization [facility] Address [address] [place] [address] Care Team Providers Care Slasher Runner Name Role Phone Lizzie Abdi Ra, APRN CLOTHING ROOM SUPERVISOR Primary Care Provid er Lizzie Abdi Ra, APRN CLOTHING ROOM SUPERVISOR Unavailable + [phone] Michaela Alexis PA-C Unavailable [phone] Yazan Sharif MD Unavailable [phone] Lizzie Abdi Ra, APRN CLOTHING ROOM SUPERVISOR Unavailable + [phone] Michaela Alexis PA-C Unavailable [phone] Lizzie Abdi Ra, APRN CLOTHING ROOM SUPERVISOR Unavailable + [phone] Michaela Alexis PA-C Unavailable [phone] Encounter Details Date Type Department Care Team (Late st Contact Info) Description 05/24/2019 My[facility] Medical Advice [address] [phone] Adelaida Collado Social History Tobacco Use Types [...] on filedocumented in this encounter Care Teams Slasher Runner Relationship Specialty Start Date End Date Lizzie Abdi Ra, APRN CLOTHING ROOM SUPERVISOR [address] [place] [address] PCP - General Family Practice 10/04/13 Lizzie Abdi Ra, APRN CLOTHING ROOM SUPERVISOR [address] [place] [address] Assigned PCP 02/28/18 02/25/20 Michaela Alexis PA-C [address] [facility] [place] [address] Assigned PCP 02/26/20 05/05/20 Yazan Sharif MD [address] [place] [address] Assigned Surgical Provider 02/24/2010/06/20 Lizzie Abdi Ra, APRN CLOTHING ROOM SUPERVISOR [address] [place] [address] Assigned PCP 05/06/20 01/24/22 Michaela Alexis PA-C [address] [place] [address] Assigned PCP 01/25/22 11/14/22 Lizzie Abdi Ra, APRN CNP [address] [place] [address] Assigned PCP 11/15/22 08/24/23 Michaela Alexis PA-C [address] [place] [address] Assigned PCP 08/25/23 documented as of this encounter
--- OUTSIDE RECORDS SUMMARY | 2023-11-01 02:49 | XMS_ITS | Encounter Summary ---
Author Organization [facility] Address [address] [place] [address]. [place] [address] Care Team Providers Care Tumbler Drier Operator Name Role Phone Lizzie Abdi Ra, APRN, CNP Primary Care Provid er Michaela Alexis-C Unavailable [phone] Yazan Sharif MD Unavailable +[phone] Lizzie Abdi Ra, APRN, CNP Unavailable [phone] Michaela Alexis PA-C Unavailable [phone] Lizzie Abdi Ra, APRN, CNP Unavailable + [phone] Michaela Alexis PA-C Unavailable [phone] Encounter Details Date Type Department Care Team (Late st Contact Info) Description 03/23/2020 MyC Medical Advice [facility] [address] [place] [address] Lizzie Abdi Ra, APRN COMMERCIAL PLUMBER [address] [place] [address] Social History Tobacco Use Types Packs/Day Years [...] on filedocumented in this encounter Care Teams Tumbler Drier Operator Relationship Specialty Start Date End Date Lizzie Abdi Ra, PIA COMMERCIAL PLUMBER [address] [place] [address] PCP - General Family Practice 10/04/13 Michaela Alexis PA-C [id number] [facility] [place] [address] Assigned PCP 02/26/20 05/05/20 Yazan Sharif MD [address] [address] Assigned Surgical Provider 02/24/2010/06/20 Lizzie Abdi Ra, INSOLE COVERER COMMERCIAL PLUMBER [address] [place] [address] Assigned PCP 05/06/20 01/24/22 Michaela Alexis PA-C [id number] [facility] [address] Assigned PCP 01/25/22 11/14/22 Lizzie Abdi Ra, PIA COMMERCIAL PLUMBER [address] [place] [address] Assigned PCP 11/15/22 08/24/23 Michaela Alexis PA-C [id number] [facility] [place] [address] Assigned PCP 08/25/23 documented as of this encounter
--- OUTSIDE RECORDS SUMMARY | 2023-11-01 02:49 | XMS_ITS | Encounter Summary ---
Author Organization [facility] Address [address] [place] [address]. [place] [address] Care Team Providers Care Formulation Scientist Name Role Phone Lizzie Abdi Ra, APRN OXYGEN EQUIPMENT TECHNICIAN Primary Care Provid er Yazan Sharif MD Unavailable [phone] Lizzie Abdi Ra, APRN OXYGEN EQUIPMENT TECHNICIAN Unavailable + [phone] Michaela AlexisC Unavailable [phone] Lizzie Abdi Ra, APRN OXYGEN EQUIPMENT TECHNICIAN Unavailable + [phone] Michaela Alexis-C Unavailable [phone] Encounter Details Date Type Department Care Team (Late st Contact Info) Description 08/09/2020 Documentation Only [facility] [address] [place] [id number] Lizzie Abdi Ra, APRN OXYGEN EQUIPMENT TECHNICIAN [address] [place] [address] Social History Tobacco Use Types [...] have Coronavirus / COVID-19? No / Unsure 07/20/2020 12:53 PM CDT documented as of this encounter Plan of Treatment Not on file documented as of this encounter Visit Diagnoses Not on filedocumented in this encounter Care Teams Formulation Scientist Relationship Specialty Start Date End Date Lizzie Abdi Ra, APRN OXYGEN EQUIPMENT TECHNICIAN [address] [place] [address] PCP - General Family Practice 10/04/13 Yazan Sharif MD [address] [address] Assigned Surgical Provider 02/24/2010/06/20 Lizzie Abdi Ra, APRN OXYGEN EQUIPMENT TECHNICIAN [address] [place] [address] Assigned PCP 05/06/20 01/24/22 Michaela Alexis PA-C [id number] [facility] [place] [address] Assigned PCP 01/25/22 11/14/22 Lizzie Abdi Ra, APRN OXYGEN EQUIPMENT TECHNICIAN [address] [place] [address] Assigned PCP 11/15/22 08/24/23 Michaela Alexis PA-C [address] [facility] [place] [address] Assigned PCP 08/25/23 documented as of this encounter
--- OUTSIDE RECORDS SUMMARY | 2023-11-01 02:49 | XMS_ITS | Encounter Summary ---
Author Organization [facility] Address [address] [place] [address] Care Team Providers Care Hris Specialist Name Role Phone Lizzie Abdi Ra, APRN, CNP Primary Care Provid er Lizzie Abdi Ra, APRN, CNP Unavailable + [phone] Michaela Alexis-C Unavailable [phone] Lizzie Abdi Ra, APRN MIDDLE SCHOOL MATH TEACHER Unavailable + [phone] Michaela Alexis-C Unavailable [phone] Encounter Details Date Type Department Care Team (Late st Contact Info) Description 02/14/2021 MyC Medical Advice [address] [address] [place] Social History Tobacco [...] on filedocumented in this encounter Care Teams Hris Specialist Relationship Specialty Start Date End Date Lizzie Abdi Ra, APRN CNP [address] [place] [address] PCP - General Family Practice 10/04/13 Lizzie Abdi Ra, APRN [employer] SCHO[employer] MATH TEACHER [address] [place] [address] Assigned PCP 05/06/20 01/24/22 Michaela Alexis PA-C [address] [facility] [place] [address] Assigned PCP 01/25/22 11/14/22 Lizzie Abdi Ra, APRN [employer]CHO[employer] MATH TEACHER [address] [place] [address] Assigned PCP 11/15/22 08/24/23 Michaela Alexis PA-C [address] [facility] [place] [address] Assigned PCP 08/25/23 documented as of this encounter
--- OUTSIDE RECORDS SUMMARY | 2023-11-01 02:49 | XMS_ITS | Encounter Summary ---
Author Organization [facility] Address [address] [place] [address] Care Team Providers Care Clinical Research Administrator Name Role Phone Lizzie Abdi Ra, APRN, CNP Primary Care Provid er Lizzie Abdi Ra, APRN, CNP Unavailable + [phone] Michaela Alexis-C Unavailable [phone] Lizzie Abdi Ra, APRN GUEST EXPERIENCE REPRESENTATIVE Unavailable + [phone] Michaela Alexis-C Unavailable [phone] Encounter Details Date Type Department Care Team (Late st Contact Info) Description 11/28/2021 MyC Medical Advice [address] [address] Austen Maldonado MA Social History Tobacco Use Types Packs/Day Years Used Date Smoking Tobacco: Never Smokeless Tobacco: Never Alcohol Use Standard Drinks/Week Comments Yes 0 (1 standard drink = 0.6 oz pur e alcohol) 2-3 drinks per week. PHQ-2 Answer Date Recorded PHQ-2 Score 0 05/17/2021 Sex and Gender Information Value Date Recorded Sex Assigned at Male 09/19/2020 4:35 PM CDT Gender Identity Male 09/19/2020 4:35 PM CDT Sexual Orientation Straight 09/19/2020 4: 35 PM CDT documented as of this encounter Plan of Treatment Not on file documented as of this encounter Visit Diagnoses Not on filedocumented in this encounter Care Teams Clinical Research Administrator Relationship Specialty Start Date End Date Lizzie Abdi Ra, APRN CNP [address] [place] [address] PCP - General Family Practice 10/04/13 Lizzie Abdi Ra, SENIOR QUALITY ASSURANCE ENGINEER GUEST EXPERIENCE REPRESENTATIVE [address] [place] [address] Assigned PCP 05/06/20 01/24/22 Michaela Alexis PA-C [address] [facility] [place] [address] Assigned PCP 01/25/22 11/14/22 Lizzie Abdi Ra, APRN GUEST EXPERIENCE REPRESENTATIVE [address] [place] [address] Assigned PCP 11/15/22 08/24/23 Michaela Alexis PA-C [address] [facility] [place] [address] Assigned PCP 08/25/23 documented as of this encounter
--- OUTSIDE RECORDS SUMMARY | 2023-11-01 02:49 | XMS_ITS | Encounter Summary ---
Author Organization [facility] Address [address] [place] [address] Care Team Providers Care Dock Worker Name Role Phone Lizzie Abdi Ra, APRN PARK MANAGER Primary Care Provid er Lizzie Abdi Ra, APRN PARK MANAGER Unavailable + [phone] Michaela Alexis PA-C Unavailable [phone] Yazan Sharif MD Unavailable [phone] Lizzie Abdi Ra, APRN PARK MANAGER Unavailable + [phone] Michaela Alexis PA-C Unavailable +[phone] Lizzie Abdi Ra, APRN PARK MANAGER Unavailable + [phone] Michaela Alexis PA-C Unavailable [phone] Encounter Details Date Type Department Care Team (Late st Contact Info) Description 02/08/2020 MyC Medical Advice [address] [phone] [place] Social History Tobacco Use Types [...] on filedocumented in this encounter Care Teams Dock Worker Relationship Specialty Start Date End Date Lizzie Abdi Ra, APRN PARK MANAGER [address] [place] [address] PCP - General Family Practice 10/04/13 Lizzie Abdi Ra, APRN PARK MANAGER [address] [place] [address] Assigned PCP 02/28/18 02/25/20 Michaela Alexis PA-C [address] [place] [address] Assigned PCP 02/26/20 05/05/20 Yazan Sharif MD [address] [place] [address] Assigned Surgical Provider 02/24/2010/06/20 Lizzie Abdi Ra, APRN PARK MANAGER [address] [place] [address] Assigned PCP 05/06/20 01/24/22 Michaela Alexis PA-C [address] [place] [address] Assigned PCP 01/25/22 11/14/22 Lizzie Abdi Ra, APRN PARK MANAGER [address] [place] [address] Assigned PCP 11/15/22 08/24/23 Michaela Alexis PA-C [address] [place], [place] [address] Assigned PCP 08/25/23 documented as of this encounter
== END 2023-10-30 07:31 | disposition home or self-care (01) ==
LOC: NFLDREF 11-01 02:47
PROVIDERS: PCP Family Medicine; Referring Provider Family Medicine; Visit Provider Family Medicine
DX: I10 Essential (primary) hypertension (principal); E11.9 Type 2 diabetes mellitus without complications; E78.5 Hyperlipidemia, unspecified; R97.20 Elevated prostate specific antigen [PSA]; N18.31 Chronic kidney disease, stage 3a
CPT/HCPCS: 80053; 80061; 82043; 82570; G0103

== ENCOUNTER 2024-05-02 07:50 | Outpatient (CLI) | payer OTHER, SELFPAY | END 2024-05-02 07:51 | disposition home or self-care (01) | LOC: NFLDREF 05-03 10:56 | PROVIDERS: PCP Family Medicine; Referring Provider Family Medicine; Visit Provider Family Medicine | DX: I10 Essential (primary) hypertension (principal); E11.9 Type 2 diabetes mellitus without complications; M1A.9XX0 Chronic gout, unspecified, without tophus (tophi) | CPT/HCPCS: 80053; 84550 ==

== ENCOUNTER 2024-11-25 07:40 | Outpatient (CLI) | payer OTHER, SELFPAY | END 2024-11-25 07:41 | disposition home or self-care (01) | LOC: NFLDREF 11-26 18:56 | PROVIDERS: PCP Family Medicine; Referring Provider Family Medicine; Visit Provider Family Medicine | DX: E11.9 Type 2 diabetes mellitus without complications (principal); I10 Essential (primary) hypertension; E78.5 Hyperlipidemia, unspecified; M1A.9XX0 Chronic gout, unspecified, without tophus (tophi); Z12.5 Encounter for screening for malignant neoplasm of prostate | CPT/HCPCS: 80053; 80061; 82043; 82570; 84550; G0103 ==